=== PATIENT | male | born 1995 | race African-American/Black ===

== ENCOUNTER → 2017-10-31 09:35 | Day surgery (SDC) | payer OTHER ==
--- NOTE | 2017-10-21 07:49 | HP ---
PREOPERATIVE HISTORY AND PHYSICAL: DATE OF ADMISSION/SURGERY: 10/31/17 DATE OF OFFICE VISIT: 10/17/17 ATTENDING SURGEON: Dr. Shadi Price * (DICTATED BY CONOR ATWOOD) PROCEDURE: Right knee arthroscopic anterior cruciate ligament reconstruction, possible lateral collateral ligament reconstruction. CHIEF COMPLAINT: Right knee pain. 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 He had immediate pain and some swelling in his knee. Dr. Price examined him in the training room. MRI revealed ACL, LCL, and biceps rupture. The patient has been recently working on range of motion and he has noticed that the pain and swelling has improved. However, he has failed conservative measures and therefore agreed to undergo a right knee arthroscopic anterior cruciate ligament reconstruction, possible lateral collateral ligament reconstruction with Dr. Price on 10/31/17. PAST MEDICAL HISTORY: No current problems. PAST SURGICAL HISTORY: No prior surgeries. MEDICATIONS: No active medications. ALLERGIES: No known drug allergies. FAMILY HISTORY: Denies pertinent family history. SOCIAL HISTORY: He lives with his roommate. He is a student. He denies tobacco use. He denies alcohol use. He exercises regularly. He is right hand dominant. REVIEW OF SYSTEMS: A 14-point review of systems was reviewed with the patient. Positive for current complaint, otherwise negative. Denies fever, chills, night sweats, chest pain, or shortness of breath. Denies history of DVT or PE. Denies history of bleeding disorder. PHYSICAL EXAMINATION GENERAL: A 22-year-old well-developed, well-nourished male in no acute distress. Alert and oriented x3. Appropriate mood and affect. VITAL SIGNS: Height 75, weight 240, pulse 70, blood pressure 144/76, respiratory rate 16, BMI 30. HEENT: Normocephalic, atraumatic. PERRLA. Throat clear. NECK: Supple. PULMONARY: Lungs are clear to auscultation bilaterally. No wheezing, rhonchi, or rales. CARDIO: Regular rate and rhythm. S1, S2. No murmurs, gallops, or rubs. No edema. ABDOMEN: Positive bowel sounds, soft, nontender. MUSCULOSKELETAL: Right lower extremity, skin is intact. There is a moderate effusion. Range of motion from about 3 to 120 degrees. He has got 30% visible quad atrophy. Nontender to palpation over the joint line. There is mild tenderness to palpation over the LCL. He has a 2B Kalia and had a grade 3 opening to varus stress. Stable valgus stress. Negative Holly. Calf soft and nontender. +2 DP pulse. Sensation intact to light touch distally. NEUROLOGIC: Alert and oriented x3. Cranial nerves are grossly intact. Sensation is intact to light touch distally. STUDIES: MRI of the right knee revealed full thickness ACL rupture with LCL and biceps rupture. No obvious meniscus tear. Bone bruising throughout the knee and a large effusion. IMPRESSION: Right knee anterior cruciate ligament and lateral collateral ligament tear. PLAN: The patient is scheduled to undergo a right knee arthroscopic anterior cruciate ligament reconstruction, possible lateral collateral ligament reconstruction with Dr. Price on 10/31/17. The patient would like a bone patellar tendon bone autograft for the ACL reconstruction and an allograft will be used for the LCL reconstruction. Percocet will be sent for a postop pain management and Keflex will be sent for antibiotic prophylaxis. The patient will follow up on the with Dr. Price for postop followup and suture removal. CONOR ATWOOD [id number]/CPS #: [id number] MTDD
[~2017-10-31 09:35] MED LIST: Buffered Lidocaine 0.9% SYRIN* 5 ML/SYR SYRINGE INTRADERM ONE; Buffered Lidocaine 0.9% SYRIN* 5 ML/SYR SYRINGE ONE; Bupivacaine 0.25% SDV* 30 ML ONE; Dexamethasone IV* 4 MG/ML 1 ML (4 MG) ONE; DiMENhydriNATE IV* 50 MG/ML VIAL IV PUSH PRN; DiMENhydriNATE IV* 50 MG/ML VIAL ONE; Famotidine IV* 10 MG/ML 2 ML (20 mg) IV ONE; Famotidine IV* 10 MG/ML 2 ML (20 mg) ONE; HYDROmorphone INJ* 1 MG/ML CARPUJECT SYRINGE IV PRN; HYDROmorphone INJ* 1 MG/ML CARPUJECT SYRINGE ONE; Ketorolac INJ* 30 MG/ML 1 ML VIAL ONE; Lidocaine 1% MPF wEPI 200,000* 30 ML SDV ONE; Midazolam* 1 MG/ML 2 ML VIAL (2 MG) ONE; Ondansetron INJ* 2 MG/ML VIAL ONE; Propofol* 10 MG/ML 20 ML BTL IV PUSH ONE; Rocuronium* 10 MG/ML VIAL ONE; Succinylcholine* 20 MG/ML 10 ML VIAL ONE; ceFAZolin 1 GM VIAL(*) ONE; ceFAZolin 2 GM PREMIX (*) 2 GM/50 ML BAG IVPB ONE; fentaNYL* 50 MCG/ML 2 ML VIAL (100 MCG VIAL) ONE; oxyCODONE/Acetamin 5/325 MG* TAB ONE
[2017-10-31] MEDS: oxyCODONE/Acetamin 5/325 MG* TAB PO PRN ×2 (17:52→17:53)
[2017-10-31 19:19] VITALS: BP 162/80
--- NOTE | 2017-11-01 07:32 | RAD ---
INDICATION: Right knee arthroscopy COMPARISON: None FINDINGS: 6.7 seconds of fluoroscopy were provided for the orthopedics department. Fluoroscopic spot imaging of the left knee were obtained for operative control. CPT II Codes: 6045F (fluoro time doc)
--- NOTE | 2017-12-08 08:02 | OP ---
CC: Dr. Hernández * DATE OF OPERATION: 10/31/17 - [facility] DATE OF : 89 ATTENDING SURGEON: Shadi Price MD ASSISTANTS: CONOR Charles. An electrical assistant was needed for the entirety of the case to help with positioning, retraction, and utilized throughout all portions of case. ANESTHESIOLOGIST: Dr. Florentino. ANESTHESIA: General. PRE-OP DIAGNOSES: Grade 3 ACL, grade 3 LCL, and a strain on the popliteus. POST-OP DIAGNOSES: Strain with a small chondral lesion of the medial femoral condyle and lateral meniscal fraying. OPERATIVE PROCEDURE: 1. Right knee arthroscopy with partial lateral meniscectomy. 2. Removal of plica. 3. Chondroplasty of the medial femoral condyle. 4. ACL reconstruction with BTB autograft. 5. Posterolateral corner reconstruction in a modified Meléndez technique using tibialis anterior allograft. 6. Repair of the biceps femoris tendon to the fibula. 7. Neurolysis of common peroneal nerve. ESTIMATED BLOOD LOSS: About 100. TOURNIQUET TIME: Zero minutes. COMPLICATIONS: None. IMPLANTS USED: Two Macdonald and Nephew SoftSilk screws, one is 7 x 25 and the other is 9 x 25, three PEEK screws, two 7 x 25 and one 6 x 25, one 1.8 Q-Fix anchor. 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 He underwent MRI and was diagnosed with an LCL rupture, rupture of the biceps femoris with bony avulsion as well as a grade 3 ACL rupture. He was working on range of motion and determining where he would like to have his surgery done when he decided to stay locally. Risks and benefits of surgery were discussed at length and included, but are not limited to bleeding, infection, damage to nerves, vessels, surrounding structures, wound nonhealing, persistent pain, need for further surgery, scarring, stiffness , incomplete relief of symptoms, risks of anesthesia, worsening arthritis, risk of fracture, dislocation, risk of DVT, risk of nerve injury and he has elected to proceed. Preoperatively, he had full functionality of his nerve. At the time of the injury, he did have some paresthesias, but those have largely resolved. Both he and his family have agreed to proceed. DESCRIPTION OF PROCEDURE: The patient was greeted in the preoperative area by the attending surgeon. The correct extremity was marked and the consent was confirmed. The patient was then brought back to the operating suite where he was placed in the supine position on the operating table. The tibialis anterior graft was thawed. The unsterile tourniquet was placed high on the proximal thigh. Lateral post was positioned. The right leg was then prepped and draped in the usual sterile fashion beginning with a chlorhexidine soap, scrub, and alcohol wipe and a final prep with ChloraPrep. The provisional incisions were then marked carefully. The C-arm was brought into the room in case for its utilization. An examination of the knee was done. There was hyperextension with obvious grade 3 plus opening to varus stress at 0 and 30 degrees. There was no evidence of full posterolateral corner down plus was not significantly different. There was a grade 3 ACL rupture and PCL was intact and range of motion was 0 to 140 degrees. After appropriate surgical pause indicating site, side, procedure, administration of antibiotics, an attempt to identify the nerve distally was then made by making an incision along the anterior aspect of the fibula. The soft tissues were carefully dissected. After significant amount of time trying to delve through scar, decision was made to try to find the nerve proximally. Attention was directed to the ACL. The midline incision was made over the patellar tendon. The soft tissues were carefully dissected to expose the peritenon and kept as a layer for later closing. The patellar tendon was identified. The center third was harvested with a width of about 10 mm. This was done with a fresh 10 blade. Proximally, the patellar block was then harvested for a width and length of 9 x 25 mm. The cuts were made with sagittal saw. The bone blocks were then carefully removed using the osteotomes. Distally, a bone block of 10 x 30 mm was also harvested. The graft was prepared on the back table by the electrical assistant. The patellar tendon layer was closed with 0 Vicryl in an interrupted fashion. The lateral portal was made through the capsule and the scope was brought into the joint. Joint was placed in the suprapatellar pouch and examined. There was no obvious chondral change to the patellofemoral joint. The medial and lateral gutters were intact. Then, the scope was brought into the notch and there was complete rupture of the ACL. The PCL was intact. The scope was then brought into the medial compartment. There was an evidence of medial femoral condyle OCD lesion that was identified and a small chondroplasty was done to remove some of the unstable flaps, but there was attempted healing and there was cartilage covering this. Therefore, no further procedure was done to that. Medial femoral condyle and the medial plateau otherwise had grade 0 changes. The medial meniscus was intact, but there was tearing evidenced anteriorly; however , it appeared to be healing back. Attention was directed to the lateral compartment. The popliteus was found to be present and not obviously torn and still intact. The lateral meniscus had a partial tearing beginning at the root and then fraying along the body. The shaver was used to debride back lateral meniscus. The lateral plateau had grade 1 changes. Prior to the chondroplasty of the condyle, there was an evidence of a large plica that was present there. This was debrided back, which showed to where it was rubbing against the medial femoral condyle. This was debrided back using a shaver and electrocautery device. Once the other portion of the procedure was completed, attention was directed to the ACL. The remaining stump was removed using shaver and biters. The lateral femoral condyle was prepared in usual fashion. No chondroplasty could be done due to the wide notch. Once the provisional instructor pilot hole was placed for provisional positioning of the femoral tunnel, this was checked with x-ray since x-ray was available. Attention was directed to the tibial tunnel. Next, a tip-to-tip guide was placed at the at the appropriate angle between 50 and 55. The guide pin was then drilled once it was confirmed to be appropriately located based on the position with respect to the PCL as well as the meniscus and the tibial spine. This was overdrilled with size 10 mm full bore reamer. The excess bone was saved for later bone graft as there was a bony defect. The tunnel was then rasped and the shaver was used to remove any edges. At this point, the attention was directed to the femoral tunnel with the knee was placed in hyperflexion and the straight Macdonald and Nephew guide placed. The Beath pin was then advanced to the center of the tunnel. The provisional instructor pilot hole had been checked by changing from the lateral to the medial portal. Once the Beath pin was placed again, the scope was changed from the lateral to the medial port to ensure that there was no back wall and it was appropriately positioned. After this was done, a size 9 mm low profile reamer was used to drill to a depth of about 27 mm. All excess bone and debris were removed. The tunnel was then notched using the presentation designer. The image of the tunnel was then obtained to make sure there was a good position with appropriate back wall. At this point, #2 Ethibond suture was placed to the free end of the Beath pin, which was then advanced to the knee and then packed in an antegrade fashion to the tibial tunnel. The graft was then brought to the operating table. The graft was then placed with excellent purchase under arthroscopic and direct visualization. Almost it was fully seated in the femoral tunnel. A Beath pin was then used and a 7 x 25 mm screw was then used to secure the graft with excellent purchase. The knee was then carefully cycled to about 15 times to remove any creep or stress in the graft. The tibial tunnel was not fixed yet at this point. Once this portion was completed, attention was directed back to the LCL. The knee was placed at 90 degrees. A large hockey stick incision was made that connected from the previously made distal incision proximally to expose the IT band. There was abundant scar tissue that was present at the joint itself. A large flap of tissue was then made as the patient was young and healthy to exposed the IT band. First attempt was made to identify the nerves posterior to the biceps femoris, which was palpated very proximally. The nerve was eventually identified. This was done with root magnification. Once the nerve was identified intact, dissection followed the nerve distally to help delve through the abundant scar tissue. The biceps femoris was also identified and traced along distally. The small bony fragment that was attached to it was found to be scarred approximately 1 to 1.5 cm proximal to where its insertion should have been. This was then gently mobilized and a tying suture was placed to allow for later identification and then direct repair. The dissection began around the fibula with care again to preserve the nerve, which was identified and tagged with a vessel loop anteriorly to posteriorly to allow for guidewire placement and then tunnel drilling. With careful dissection, the anterior posterior aspect of the fibula were identified again about distal to the flare of the fibula. Once it was exposed particularly posteriorly as well, the guide pin that was previously used was then placed at anteromedial to posterolateral at angle about 45 degrees off the midline. This was then overdrilled with a size 7 mm reamer. The soft tissues were carefully removed from the tunnel and a 0 Vicryl passing stitch was then placed there for later passing. At this point, the femoral insertions were then attempted to be identified. The IT band was incised to allow for one-third to two-third intervals. The popliteus tendon was palpable and identified. The insertion site was marked, which was confirmed with a C-arm. The lateral epicondyle was also identified. The LCL was still attached proximally and it was identified. The sharp points were then marked with electrocautery and confirmed with x-ray. Initially, the plan was to pass an EndoButton. The tunnel plates were prepared using electrocautery , shaver, as well as the osteotome to allow for bony bleeding edge. Once the __ ____ tunnels were identified, the graft had been previously thawed, the ends were whipstitched using #5 Ethibond suture, and then an attempt to try to pass a fixed length EndoButton by using sutures to weave through, was then secured with hopes to trying to secure the LCL portion with an EndoButton. The LCL tunnel was then drilled angling more anteriorly and superiorly to avoid any previously drilled ACL femoral tunnel as well as the joint itself. EndoButton drill was then drilled over that. The suture was passed at the end of Beath pin and the graft began to be advanced; however, the button did not get good purchase. Therefore, this was abandoned. The tendon was whipstitched again and the Beath pin was placed once more. At this point in time, the decision was made to secure this using a PEEK screw. A size 7 mm PEEK screw was then used to secure approximately 25 cc of the graft, which allowed for excellent purchase. At this point, the graft was then placed beneath the IT band. At this point, the biceps femoris anchor placement was done to make sure that it did not interfere with the tunnel placement in the fibula. The Q-Fix guide was placed along the site posterior to the tip of the fibula after the bony site was debrided of soft tissue. The Q-Fix 1.8 anchor was placed with excellent purchase and did not violate the tunnel. The biceps was going to be repaired right after placement into the fibula. The previous tib ant graft was then passed under the IT band and passed from anterior to posterior through the tunnel, so that the LCL was more superficial to the popliteus. Again, the nerve was protected and identified throughout all portions of the case. With the knee at about 30 degrees of flexion with varus stress and slight 5 degrees of rotation, the graft was secured in the fibular tunnel with a 7 x 25 mm PEEK screw. This allowed for excellent purchase. The last tail of the graft was then passed through the tunnel at the popliteus with tension on the graft and again with 30 degrees of flexion and neutral rotation, this was secured with another PEEK screw about 7 x 25 mm. At this point, the biceps femoris was then repaired back. The sutures were then whipstitched through the tendon the Q-Fix and then secured down and this allowed for muslim and fixation of the biceps femoris. Attention was directed to the ACL. The LCL and posterolateral corner was gently stressed at 0 and 30 degrees and found to be stable. The knee was then placed in approximately 20 degrees of flexion with neutral rotation and no varus or valgus stress and tension on the tibial portion. The bone blocks were secured with a 9 x 25 mm SoftSilk screw. The knee was taken through range of motion from 0 to 140 degrees. Kalia assessed and found to be rock stable. At this point, the wounds were copiously irrigated with sterile saline. The scope was brought back to the joint and the ACL was found to not impinge in full extension, was found to have appropriate position with the knee at 90 degrees. Final images were obtained. The wounds were copiously irrigated with sterile saline. The anterior wound was closed in layers. The first bone graft was placed in the patellar defect and the tibial defect and oversewn with 0 Vicryl on patellar side. The paratenon was closed with 2-0 Vicryl in a running fashion. The subcutaneous tissues were closed with 2-0 Vicryl and the skin with Monocryl. The lateral wound was closed in layers as well after copiously irrigated. The vessel loop was removed and the nerve was again identified without any damage. The capsule and the soft tissues were closed with 0 Vicryl. The IT band was closed with 0 Vicryl in an interrupted fashion and water tight seal. The wound was irrigated again and the subcu was closed in layers with 2-0 Vicryl and the skin with 3-0 Monocryl. Sterile dressings were applied. The knee was injected with 0.25% Marcaine plain as well as intra- articularly. A Cryo/Cuff and a hinged knee brace was placed with knee at 0 degrees. He was awoken from anesthesia and then transferred to the PACU in stable condition. POSTOPERATIVE PLAN: He will be toe-touch weightbearing. He will allow no varus stress of the leg. We will start with gentle passive range of motion only. He will follow up in the office in about a week. We will check the incisions. He will be then going home for the holidays and we will follow him closely. I have given him a copy of my rehab guidelines. DVT prophylaxis was considered, but deferred due to no previous personal or family history. He was discharged on pain medications, antibiotics. I will see the patient back in approximately 1 week and then when he returns from his holidays. [id number]/CPS #: [id number] ANAID
== END | disposition home or self-care (01) ==
LOC: OR 09:35
PROVIDERS: ATTEND Orthopaedic Surgery
DX: S83.511A Sprain of anterior cruciate ligament of right knee, initial encounter (principal); S83.421A Sprain of lateral collateral ligament of right knee, initial encounter; S83.281A Other tear of lateral meniscus, current injury, right knee, initial encounter; M67.51 Plica syndrome, right knee; X50.0XXA Overexertion from strenuous movement or load, initial encounter; X50.9XXA Other and unspecified overexertion or strenuous movements or postures, initial encounter; Y93.61 Activity, american tackle football; Y92.321 Football field as the place of occurrence of the external cause; Y99.8 Other external cause status
CPT/HCPCS: 76000; A9270-GY; C1713; J0330; J0690; J1100; J1170; J1240; J1885; J2001; J2250; J2405; J2704; J3010

== ENCOUNTER 2018-02-16 12:29 | Day surgery (SDC) | payer OTHER ==
--- NOTE | 2018-02-12 20:57 | HP ---
PREOPERATIVE HISTORY AND PHYSICAL: DATE OF ADMISSION/SURGERY: 02/16/18 - [facility] DATE OF OFFICE VISIT: 02/12/18 ATTENDING SURGEON: Dr. Shadi Price.* (DICTATED BY CONOR ATWOOD) PROCEDURE: Right knee arthroscopic surgery, lysis of adhesion. CHIEF COMPLAINT: Right knee. HISTORY OF PRESENT ILLNESS: Miles is a 22-year-old male, who presents to the clinic for followup of his right knee injury. He had an LCL reconstruction and ACL reconstruction using BTB autograft. He has had postoperative stiffness due to scar tissue and failed conservative measures to include physical therapy. He has therefore agreed to undergo a right knee arthroscopic surgery, lysis of adhesions with Dr. Price on 02/16/18. PAST MEDICAL HISTORY: No current problems. PAST SURGICAL HISTORY: Right knee ACL and LCL reconstruction. MEDICATIONS: Ibuprofen as needed. ALLERGIES: No known drug allergies. FAMILY HISTORY: Denies pertinent family history. SOCIAL HISTORY: He lives with his roommate. 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 He denies tobacco use or alcohol use. He exercises regularly. He is right-hand dominant. REVIEW OF SYSTEMS: A 14-point review of systems was reviewed with the patient. Positive for current complaint, otherwise negative. He denies fever, chills, chest pain, shortness of breath, history of bleeding disorder, history of DVT or PE. PHYSICAL EXAMINATION GENERAL: A 22-year-old, well-developed, well-nourished male in no acute distress. Alert and oriented x3. Appropriate mood and affect. Appropriate balance and coordination to the lower extremities. VITAL SIGNS: Height 75, weight 231, pulse 58, blood pressure 120/76, respiratory rate 16, BMI 28.9. HEENT: Normocephalic, atraumatic. PERRLA. Throat clear. NECK: Supple. PULMONARY: Lungs clear to auscultation bilaterally. No wheezing, rhonchi, or rales. CARDIO: Regular rate and rhythm. S1, S2. No murmurs, gallops, or rubs. No edema. ABDOMEN: Positive bowel sounds, soft, nontender. EXTREMITIES: Right lower extremity, skin is intact with his surgical incision. No obvious effusion. Range of motion from 5 to 100 degrees, stable Kalia. Negative posterior drawer. Calf soft and nontender. +2 PT pulse. Sensation is intact to light touch distally. NEURO: Alert and oriented x3. Cranial nerves grossly intact. Sensation intact to light touch. ASSESSMENT AND PLAN: Miles is a 22-year-old male who presents to the clinic status post anterior cruciate ligament and lateral cruciate ligament reconstruction. He has postoperative stiffness and has failed conservative measures. He has therefore agreed to undergo a right knee arthroscopic surgery and lysis of adhesions by Dr. Price on 02/16/18. Percocet and Keflex will be used postoperatively for pain management and for antibiotic prophylaxis. He will follow up 10 to 14 days postop for followup and suture removal. CONOR ATWOOD [id number]/[facility] #: [id number] MTDD
[~2018-02-16 12:29] MED LIST changes: -Buffered Lidocaine 0.9% SYRIN* 5 ML/SYR SYRINGE ONE; -Bupivacaine 0.25% SDV* 30 ML ONE; -Dexamethasone IV* 4 MG/ML 1 ML (4 MG) ONE; -DiMENhydriNATE IV* 50 MG/ML VIAL IV PUSH PRN; -DiMENhydriNATE IV* 50 MG/ML VIAL ONE; -Famotidine IV* 10 MG/ML 2 ML (20 mg) IV ONE; -Famotidine IV* 10 MG/ML 2 ML (20 mg) ONE; -HYDROmorphone INJ* 1 MG/ML CARPUJECT SYRINGE IV PRN; -HYDROmorphone INJ* 1 MG/ML CARPUJECT SYRINGE ONE; -Ketorolac INJ* 30 MG/ML 1 ML VIAL ONE; -Lidocaine 1% MPF wEPI 200,000* 30 ML SDV ONE; -Midazolam* 1 MG/ML 2 ML VIAL (2 MG) ONE; -Ondansetron INJ* 2 MG/ML VIAL ONE; -Propofol* 10 MG/ML 20 ML BTL IV PUSH ONE; -Rocuronium* 10 MG/ML VIAL ONE; -Succinylcholine* 20 MG/ML 10 ML VIAL ONE; -ceFAZolin 1 GM VIAL(*) ONE; -ceFAZolin 2 GM PREMIX (*) 2 GM/50 ML BAG IVPB ONE; -fentaNYL* 50 MCG/ML 2 ML VIAL (100 MCG VIAL) ONE; -oxyCODONE/Acetamin 5/325 MG* TAB ONE
[2018-02-16] MEDS ORDERED: ceFAZolin 2 GM PREMIX (*) 2 GM/50 ML BAG IVPB ONE (13:03)
[2018-02-16] MEDS ORDERED: Lidocaine 1% MPF wEPI 200,000* 30 ML SDV ONE (13:50)
[2018-02-16] MEDS ORDERED: Bupivacaine 0.25% SDV* 30 ML ONE (13:50)
[2018-02-16] MEDS ORDERED: Dexamethasone IV* 4 MG/ML 1 ML (4 MG) ONE (13:57)
[2018-02-16] MEDS ORDERED: Propofol* 10 MG/ML 20 ML BTL IV PUSH ONE (13:57)
[2018-02-16] MEDS ORDERED: Ondansetron INJ* 2 MG/ML VIAL ONE ×2 (13:57→14:42)
[2018-02-16] MEDS ORDERED: fentaNYL* 50 MCG/ML 2 ML VIAL (100 MCG VIAL) ONE ×2 (13:57→14:52)
[2018-02-16] MEDS ORDERED: Midazolam* 1 MG/ML 5 ML VIAL (5 MG) ONE (13:57)
[2018-02-16] MEDS ORDERED: HYDROmorphone INJ* 1 MG/ML CARPUJECT SYRINGE IV PRN (14:29)
[2018-02-16] MEDS ORDERED: Naloxone* 0.4 MG/ML 1 ML VIAL IV PRN (14:29)
[2018-02-16] MEDS ORDERED: Ondansetron INJ* 2 MG/ML VIAL IV PRN (14:29)
[2018-02-16] MEDS ORDERED: fentaNYL* 50 MCG/ML 2 ML VIAL (100 MCG VIAL) IV PRN (14:29)
[2018-02-16] MEDS ORDERED: oxyCODONE/Acetamin 5/325 MG* TAB PO PRN (14:29)
[2018-02-16] MEDS ORDERED: DiMENhydriNATE IV* 50 MG/ML VIAL IV PUSH PRN (14:29)
[2018-02-16] MEDS ORDERED: HYDROcodone/ACETAMIN 5-325 MG* 1 TAB PO PRN (14:29)
[2018-02-16] MEDS ORDERED: Ketorolac INJ* 30 MG/ML 1 ML VIAL ONE (14:42)
[2018-02-16 16:07] VITALS: BP 138/82
--- NOTE | 2018-02-23 10:40 | OP ---
DATE OF OPERATION: 02/16/18 - [facility] DATE OF : 89 SURGEON: Shadi Price MD ANESTHESIOLOGIST: Papi Lee MD ANESTHESIA: General. PRE-OP DIAGNOSIS: Right knee ankylosis. POST-OP DIAGNOSIS: Right knee ankylosis. OPERATIVE PROCEDURE: Right knee arthroscopy with lysis of adhesions and manipulation under anesthesia. INDICATIONS: Miles Huerta is a 22-year-old male, who underwent combined ACL and posterolateral corner reconstruction on 10/31/17. He did very well but had blocked motion. He worked with physical therapy and his physical trainer, but he was unable to progress. He tried a Medrol Dosepak as well as significant amounts of stretching and strengthening. He is almost 4 months out from surgery. Risks and benefits of surgery were discussed at length including but not limited to bleeding, infection, damage to nerves, vessels, surrounding structures, wound nonhealing, persistent pain, scarring, stiffness, incomplete relief of symptoms, risks of anesthesia, and need for further surgery. COMPLICATIONS: None. ESTIMATED BLOOD LOSS: Minimal. TOURNIQUET TIME: 0 minutes. DESCRIPTION OF PROCEDURE: The patient was greeted in the preoperative area by the attending surgeon. The correct extremity was marked and consent was confirmed. The patient was brought back to the operating suite, where he was placed in the supine position on the operating room table. He then underwent general anesthesia and LMA intubation, after which an unsterile tourniquet was placed high in the proximal thigh. Preoperatively, the range of motion was found to be about 10 degrees to 90 degrees. The right lower extremity was prepped and draped in the usual sterile fashion beginning with chlorhexidine soap scrub and alcohol wipe and a final prep with ChloraPrep. After appropriate surgical pause indicating site, side, procedure, and administration of antibiotics, the knee was intra-articularly injected with 1% lidocaine. The lateral portal was made sharply with 11 blade, scope was introduced into the joint. The joint was examined. There were abundant adhesions and poor mobility of the patella. The anterior medial portal was made in outside-in fashion. The shaver was used to debride the abundant pad. 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 ACL and PCL were intact. Care was taken not to do varus- valgus stress to stress the LCL repair as it was still fairly early in the rehab process. Once the debridement of the cyclops lesion and the notch was complete, attention was directed anteriorly. Abundant synovitis and scar was present anteromedially and prepatellar. There was scar all around the patella as well that was removed with electrocautery device and the shaver. This allowed for better mobilization of the patellar tendon. After the vast majority was released and the fluid was removed from the joint, then the manipulation began. The knee was then fully extended and then with towels under the heel, it was tried to passively get to 0 and hold it there. Adhesions were palpable. The knee was then gently flexed, I was able to get to about 135 degrees of flexion with audible crepitus, audible breaking of the adhesions. Again, it was held in full extension in stress release type of manner and then fully flexed. The scope was then brought back into the joint and the joint was examined. There was no damage to any structures. Hemostasis was obtained. The wounds were copiously irrigated with sterile saline. The knee was thoroughly lavaged. There was much better patellar mobility. At the end of the case, range of motion was found to be 0 to 135 degrees. He had a stable Kalia. Final images were obtained. Wounds were copiously irrigated. The portals were closed with 3-0 nylon in interrupted fashion. Sterile dressings were applied as well as Cryo/Cuff. He was awoken from anesthesia and transferred to PACU in stable condition. POSTOPERATIVE PLAN: He will be weightbearing as tolerated. He will start range of motion right away with his physical trainer. I will see him back in 14 days. DVT prophylaxis was considered, but deferred due to no previous personal or family history. He will be discharged on pain medication and antibiotics. [id number] #: [id number] [facility]ALTH[facility]manda
== END 2018-02-16 16:09 | disposition home or self-care (01) ==
LOC: OREAST 12:29
PROVIDERS: ATTEND Orthopaedic Surgery
DX: M24.661 Ankylosis, right knee (principal)
CPT/HCPCS: J0690; J1100; J1885; J2001; J2250; J2405; J2704; J3010